=== PATIENT | male | born 1970 | race Caucasian/White ===

== ENCOUNTER 2021-05-29 08:11 | Emergency (ER) | payer SELFPAY ==
--- NOTE | ~2021-05-29 | XR_ITS ---
EXAMINATION: XR chest 1V portable 05/29/2021 08:39 INDICATION: Shortness of breath. Covid positive. PROCEDURE: AP portable chest COMPARISON: No prior studies for comparison. FINDINGS: The lungs are clear. The cardiomediastinal silhouette is within normal limits. There are no pleural effusions. There is no pneumothorax suspected. There is scoliosis. No acute osseous abno rmality. IMPRESSION: 1: NO ACUTE CARDIOPULMONARY DISEASE. Reviewed, dictated and finalized at location B. ETT MECHANIC
[2021-05-29 08:17] VITALS: BP 159/100; PULSE 109; RESP 14; TEMP 36.9; O2SAT 99
--- NOTE | 2021-05-29 08:22 | ECG_ITS ---
Measurements Intervals [place] Rate: 102 P: 80 [place]: 114 QRS: 21 QRSD: 89 T: 66 QT: 329 QTc: 430 Interpretive Statements SINUS TACHYCARDIA WITH SHORT [place] INTERVAL INCOMPLETE RIGHT BUNDLE BRANCH BLOCK BORDERLINE ST ABNORMALITY- ANTEROLAT/INF LEADS BASELINE ARTIFACT- I, AVR BORDERLINE ECG Electronically Signed On 05-29-2021 9:22:53 AUTOMOBILE INSPECTOR by Satinder Frey D.O.
[2021-05-29 08:36] LABS: Basophils Percent Auto 0.1 % (0.2-1.2); Hematocrit 46.1 % (42.0-52.0); Hemoglobin 15.8 g/dL (14.0-18.0); Immature Granulocyte Absolute 0.03 K/mm3 (0.00-0.031); Immature Granulocyte Percent A 0.4 % (0-0.5); Lymphocytes Absolute Auto 1.02 K/mm3 (0.9-3.2); Lymphocytes Percent Auto 14.1 % (18.3-44.2); Mean Corpuscular HGB Conc 34.3 g/dl (32-36); Mean Corpuscular Hemoglobin 30.7 pg (26-34); Mean Corpuscular Volume 89.5 fl (80-100); Mean Platelet Volume 9.8 fl (7.4-10.4); Monocytes Absolute Auto 0.2 K/mm3 (0.1-0.6); Monocytes Percent Auto 2.5 % (2.6-8.5); Neutrophils Percent Auto 82.9 % (45.5-73.1); Platelet Count Result 230 k/mm3 (150-375); Red Blood Count 5.15 M/mm3 (4.6-6.20); Red Cell Distribution Width 13.3 % (11.5-14.5); White Blood Count 7.3 K/mm3 (4.5-10.0)
[2021-05-29 08:45] LABS: Alanine Aminotransferase 30 U/L (4-50); Albumin Level 4.8 g/dL (3.5-5.1); Alkaline Phosphatase 97 U/L (38-126); Anion Gap 13 mmol/L (8-16); Aspartate Amino Transferase 32 U/L (17-59); Bilirubin,Total 0.4 mg/dL (0.2-1.3); Blood Urea Nitrogen 6 mg/dL (9-20); Calcium 9.2 mg/dL (8.4-10.2); Carbon Dioxide 24 mmol/L (22-30); Chloride 101 mmol/L (98-107); Estimated CRCL calculation 75 ml/min; Estimated Glomerular Filt Rate > 60; Glucose 175 mg/dL (65-110); Potassium 3.4 mmol/L (3.4-5.0); Sodium 138 mmol/L (137-145)
[2021-05-29 09:08] LABS: D Dimer 0.29 ug/mL (<0.48)
[2021-05-29 09:22] LABS: Troponin I < 0.012 ng/mL (0.000-0.034)
--- NOTE | 2021-05-29 09:22 | ED.SOB ---
HPI - SOB/Dyspnea General Chief Complaint: Shortness of Breath/Dyspnea Stated Complaint: COVID + 1.24.22, SOB Time Seen by Provider: 05/29/21 09:12 Source: patient Mode of arrival: ambulatory Limitations: no limitations History of Present Illness HPI Narrative: This is a 50 year old male that presents to the ER for cold symptoms present over the last 13 days. Reports cough, congestion, sinus pain, and chills. He is not COVID vaccinated. Reports over the last couple of days he started to note more fatigue and shortness of breath which prompted him to be seen. He had a positive home COVID test a couple days ago. Denies fever, chest pain or lower extremity edema. Related Data Allergies Allergy/AdvReac Type Severity Reaction Status Date / Time No Known Allergies Allergy Mild Unverified 12/22/08 19:50 Review of Systems Review of Systems: CONSTITUTIONAL: Reports chills. Denies fever ENT: Reports rhinorrhea, congestion CARDIOVASCULAR: Denies chest pain, or edema. RESPIRATORY: Reports cough and dyspnea. GASTROINTESTINAL: Reports nausea. Denies abdominal pain or vomiting All systems reviewed & are unremarkable except as noted in HPI and below PMFSH Past Medical History Medical History (Updated 05/29/21 @ 12:51 by Mindi Wheatley PA-C) No active medical problems Social History Social History (Updated 05/29/21 @ 09:50 by Mindi Wheatley PA-C) Smoking status: Current every day smoker Substance use: current Substance use type: marijuana Exam Narrative: GENERAL: Well-appearing, well-nourished, and in no acute distress. HEAD: Normocephalic, atraumatic. EYES: EOMI. ENT: Nares clear, no rhinorrhea or epistaxis. Mucous membranes moist. Oropharynx without tonsillar hypertrophy exudate or other lesions. NECK: Supple. No adenopathy or masses. CHEST: Clear to auscultation. No respiratory distress. No wheezes rales or rhonchi HEART: Regular rate and rhythm. No murmur heard. Normal peripheral pulses. EXTREMITIES: Normal range of motion. No edema. SKIN: Warm, dry, no rash. NEURO: No focal deficits. Alert and oriented x3. PSYCH: Normal mood and affect Course Vital Signs Vital signs: Vital Signs Temperature 98.5 F 05/29/21 08:17 Pulse Rate 109 H 05/29/21 08:17 Respiratory Rate 14 05/29/21 08:17 Blood Pressure 159/100 H 05/29/21 08:17 Pulse Oximetry 99 05/29/21 08:17 Temperature 98.5 F 05/29/21 08:17 Pulse Rate 85 05/29/21 13:02 Respiratory Rate 18 05/29/21 13:02 Blood Pressure 134/94 H 05/29/21 13:02 Pulse Oximetry 100 05/29/21 13:02 MDM - SOB/Dyspnea MDM Narrative Medical decision making narrative: Patient presents to the emergency department for shortness of breath ongoing over the last couple of days. Reporting a positive Covid test at home. He is afebrile and nontoxic-appearing. His vitals are stable. Oxygen saturation has remained normal on room air. CBC and metabolic panel without concerning findings. EKG with nonspecific ST changes. His baseline and 3 hour troponin are negative. He denies any chest pain. The ST changes did seem to improve on repeat EKG. No worsening concerns. Chest x-ray without acute cardiopulmonary abnormality. D-dimer is not elevated. Patient reports improvement in symptoms with albuterol inhaler. Patient was updated on case findings. He is stable and felt appropriate for further outpatient evaluation. 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 I do not have any recent EKGs for comparison. He was given warnings to return to the ER Lab Data Attestation: I reviewed the patient's lab results. Result diagrams: 05/29/21 08:23 05/29/21 08:23 Labs: Lab Results 05/29/21 05/29/21 05/29/21 Range/Units 08:23 08:23 08:41 WBC 7.3 (4.5-10.0) K/mm3 RBC 5.15 (4.6-6.20) M/mm3 Hgb 15.8 (14.0-18.0) g/dL Hct 46.1 (42.0-52.0) % MCV 89.5 (
[2021-05-29] MEDS: ALBUTEROL SULFATE (*SP) AEROSOL 1 PUFF 2 PUFF INHALATION (10:16)
[2021-05-29] MEDS: ONDANSETRON INJ 4 MG/2 ML VIAL IV PUSH (10:21)
[2021-05-29] MEDS: SODIUM CHLORIDE 0.9% IV 500 ML 999 ML IV CONT (10:21)
[2021-05-29 10:22] VITALS: BP 132/97; PULSE 88; PULSE 89; RESP 18; O2SAT 98
[2021-05-29 10:22] LABS: Alveolar/Arterial O2 Gradient 28.2 mmHg; Base Excess ABG -1.6 mEq/l (+/-2.0); Carboxyhemoglobin 6.1 % THb (0-2.0); Device ROOM AIR; Fractional Inspired Oxygen 21 %; Methemoglobin ABG 0.1 %THb (0-1.5); Modified Allen's Test Pass; Oxygen Content ABG 20.4 %vol (16.0-22.0); Oxygen Saturation ABG 96.2 % (95.0-100.0); Oxyhemoglobin 90.1 % THb (90.0-100.0); PCO2 ABG 34.4 mmHg (35.0-45.0); PO2 ABG 80.3 mmHg (80.0-100.0); PO2 FiO2 Ratio Arterial Blood 3.82 %; Reduced Hemoglobin 3.7 %THb (0-5.0); Site Drawn LEFT RADIAL; Total Hemoglobin 16.1 g/dL (12.0-18.0); pH ABG 7.423 (7.350-7.450)
--- NOTE | 2021-05-29 11:57 | ECG_ITS ---
Measurements Intervals [place] Rate: 88 P: 145 [place]: 92 QRS: -19 QRSD: 100 T: 151 QT: 343 QTc: 416 Interpretive Statements ECTOPIC ATRIAL RHYTHM WITH SHORT [place] INTERVAL INCOMPLETE RIGHT BUNDLE BRANCH BLOCK BORDERLINE T WAVE ABNORMALITY- INFERIOR LEADS BASELINE ARTIFACT- I, III, AVL ABNORMAL ECG Electronically Signed On 05-29-2021 12:23:59 FAST FOOD DELIVERY DRIVER by Satinder Frey D.O.
[2021-05-29 12:11] LABS: Troponin I < 0.012 ng/mL (0.000-0.034)
[2021-05-29] MEDS: METOCLOPRAMIDE HCL INJ 10 MG/2 ML VIAL IV PUSH (13:00)
[2021-05-29] MEDS: diphenhydrAMINE HCl INJ 50 MG/ML VIAL 25 MG IV PUSH (13:01)
[2021-05-29 13:02] VITALS: BP 134/94; PULSE 85; RESP 18; O2SAT 100
[2021-05-29 14:23] VITALS: BP 128/83; PULSE 77; RESP 18; O2SAT 96
== END 2021-05-29 14:24 | disposition home or self-care (01) ==
PROVIDERS: Physician Assistant; Emergency Provider Emergency Medicine
DX: R05.9 Cough, unspecified (principal); R09.81 Nasal congestion; R68.83 Chills (without fever); Z20.822 Contact with and (suspected) exposure to COVID-19; F17.200 Nicotine dependence, unspecified, uncomplicated; R00.0 Tachycardia, unspecified; I45.10 Unspecified right bundle-branch block; R94.31 Abnormal electrocardiogram [ECG] [EKG]
CPT/HCPCS: 36415; 36600; 71045; 80053; 82375; 82805; 83050; 84484; 85025; 85380; 93005; 96361; 96374; 96375; 99284; A9270; J1200; J2405; J2765; J7040

== ENCOUNTER → 2022-07-09 07:41 | Outpatient (CLI) | payer BC, SELFPAY ==
--- NOTE | ~2022-07-09 | US_ITS ---
US abdomen complete DATE: 07/09/2022 08:24 INDICATION: Abdominal pain. Heartburn, nausea for one year. TECHNIQUE: Real-time and color flow imaging and Doppler analysis COMPARISON: None FINDINGS: No hepatic or pancreatic space-occupying mass lesion is detected. Normal hepatopedal portal venous flow direction. No gallstones or gallbladder wall thickening or pericholecystic fluid collection. Negative sonographi c Jeffries's sign. The common bile duct measures 3 mm, normal. The right kidney measures approximately 9.3 cm length, left kidney approximately 10.3 cm. No renal ma ss lesion or hydronephrosis is evident. Normal splenic size. Normal caliber of the abdominal aorta. The inferior vena cava is unremarkable. IMPRESSION: No significant abnormality Reviewed, dictated and finalized at Location [facility]. Reviewed, dictated and finalized at location B. O CONTROL CRANE OPERATOR IMPRESSION: No significant abnormality
== END ==
PROVIDERS: PCP Family Medicine; Visit Provider Physician Assistant
DX: R10.9 Unspecified abdominal pain (principal)
CPT/HCPCS: 76700

== ENCOUNTER 2022-11-20 03:51 | Day surgery (SDC) | payer BC, SELFPAY ==
[2022-11-10 15:49] VITALS: BMI 22.5
[2022-11-20 11:41] VITALS: BP 121/90; PULSE 104; RESP 18; TEMP 36.7; O2SAT 99; BMI 21.2
[2022-11-20] MEDS: LACTATED RINGERS 1,000 ML 150 ML IV CONT (11:57)
--- NOTE | 2022-11-20 11:57 | PM.HPGS ---
History of Present Illness History of Present Illness Consent: Risks, benefits, and alternatives have been discussed and questions answered. Patient agrees to proceed with procedure. Chief complaint: diarrhea, GERD Narrative: Jorge A Manriquez is a 52 year old male Who has been troubled by a solid or stomach for several months. He has tried Pepto-Bismol, Zegerid, Gas-x, Tums and other products without relief. He also has had diarrhea for the past year. His stools are almost always loose but on some occasions he will actually become briefly constipated. He does not see blood in his stools. Review of Systems Review of Systems: All systems reviewed & are unremarkable except as noted in HPI and below PMFSH Past Medical History Medical History Collapsed lung 2008 COVID 2021 Hyperlipidemia Family History Family History Father Heart disease Mother Acute myocardial infarction Heart disease Sibling Acute myocardial infarction Heart disease Social History Social History Years smoked: 30 Smoking status: Former smoker Tobacco type: cigarettes Second hand tobacco smoke exposure: Yes Smoking end date: 01/02/22 Alcohol intake: current Alcohol use details: occasional Substance use: current Substance use type: marijuana Other substance usage details: Daily Lack of Transportation: No Lack of Food: Never True Current Housing: I Have Housing Concerned About Future Housing: No Difficulty Paying Gas/Electric Bills: No Difficulty Paying for Meds: No Currently Unemployed: YES Education: High School Diploma/GED Difficulty w/ Childcare or Family Care: No Living arrangements: with family Occupation/Education: unemployed Gender identity (if verbalized by the patient): Male Sexual Orientation (if Verbalized by the Patient): Straight or Heterosexual Spiritual care concerns: No Agree to blood products: No Meds Home Medications and Allergies Home Medications Medication Instructions Recorded Confirmed Type atorvastatin 20 mg tablet 20 mg PO DAILY #30 tabs 07/07/22 11/20/22 Rx Allergies Allergy/AdvReac Type Severity Reaction Status Date / Time Penicillins Allergy Intermediate Unknown Verified 11/20/22 11:40 Vital Signs Vital Signs - 24 hr 11/20/22 11:41 Temperature 36.7 C Pulse Rate 104 H Respiratory Rate 18 Blood Pressure 121/90 Pulse Oximetry 99 Oxygen Delivery Room Air Exam Const: General: alert Orientation/consciousness: patient oriented x3 Resp: Auscultation: clear to auscultation bilaterally Cardio: Rhythm: regular rhythm GI: GI Palp: Yes Soft to palpation and No Tenderness to palpation present (GI) Neuro: General: patient oriented x3 Assessment and Plan Assessment and plan (1) Dyspepsia: Code(s): R10.13 - Epigastric pain Status: Acute Assessment and Plan: EGD with possible biopsy or dilatation or cautery. (2) Chronic diarrhea: Code(s): K52.9 - Noninfective gastroenteritis and colitis, unspecified Status: Acute Assessment and Plan: Colonoscopy with possible biopsy or polypectomy or cautery or injection of substances.
--- NOTE | 2022-11-20 12:55 | P.PNAN_ITS ---
Anes - Initial Pre Proc Eval Procedure: Operation Date: 11/20/22 13:00 Proposed Procedures p Esophagogastroduodenoscopy & Colonoscopy - Luis Alberto Ji MD Date/Time: 11/20/22 12:55 Surgeon: Luis Alberto Ji MD Pre Op Diagnosis: diarrhea, GERD Patient Data Age: 52 Gender: M Height: 1.65 m Weight: 58 kg Last Vital Signs Temp 98.0 F 11/20/22 11:41 Pulse 104 H 11/20/22 11:41 Resp 18 11/20/22 11:41 BP 121/90 11/20/22 11:41 Pulse Ox 99 11/20/22 11:41 O2 Del Method Room Air 11/20/22 11:41 Allergies Allergy/AdvReac Type Severity Reaction Status Date / Time Penicillins Allergy Intermediate Unknown Verified 11/20/22 11:40 Home Medications Medication Instructions Recorded Confirmed Type atorvastatin 20 mg tablet 20 mg PO DAILY #30 tabs 07/07/22 11/20/22 Rx Patient hx anesthesia problems: none Family hx anesthesia problems: none Results Review: All pre-operative results and documents have been reviewed as part of the pre- operative evaluation. [facility] Past Medical History Medical History Collapsed lung 2009 COVID 2021 Hyperlipidemia Family History Family History Father Heart disease Mother Acute myocardial infarction Heart disease Sibling Acute myocardial infarction Heart disease Social History Social History Years smoked: 30 Smoking status: Former smoker Tobacco type: cigarettes Second hand tobacco smoke exposure: Yes Smoking end date: 01/02/22 Alcohol intake: current Alcohol use details: occasional Substance use: current Substance use type: marijuana Other substance usage details: Daily Lack of Transportation: No Lack of Food: Never True Current Housing: I Have Housing Concerned About Future Housing: No Difficulty Paying Gas/Electric Bills: No Difficulty Paying for Meds: No Currently Unemployed: YES Education: High School Diploma/GED Difficulty w/ Childcare or Family Care: No Living arrangements: with family Occupation/Education: unemployed Gender identity (if verbalized by the patient): Male Sexual Orientation (if Verbalized by the Patient): Straight or Heterosexual Spiritual care concerns: No Agree to blood products: No Anes - Eval Final PreProcedure Day of Procedure 11/20/22 12:55 Patient weight: normal Heart: regular rate and rhythm Lungs: clear to auscultation Airway: Mallampati scale class II Neurological: alert and oriented Last oral intake: >/= 8 hours ASA classification: II Emergent: no Anesthetic plan: proceed Anesthesia type and monitoring: general GIVS and standard monitoring Results Review: All pre-operative results and documents have been reviewed as part of the pre- operative evaluation. Informed Consent: The patient's anesthetic plan and its attendant risks and benefits were discussed with the patient/family/POA. Questions were solicited and answers provided to the satisfaction of the patient/family/POA.
[2022-11-20] MEDS: SIMETHICONE ORAL SUSPENSION 20 MG/0.3 ML 30 ML BOTTLE 0.6 ML IRRIGATION (13:33)
[2022-11-20 13:47] VITALS: BP 98/72; PULSE 85; RESP 16; O2SAT 97
--- NOTE | 2022-11-20 13:47 | SUR.OPER ---
EGD started at 1311 and ended at 1315. Colonoscopy started at 1324.
[2022-11-20 13:57] VITALS: BP 111/73; PULSE 79; RESP 20; O2SAT 97
[2022-11-20 14:07] VITALS: BP 109/74; PULSE 73; RESP 17; O2SAT 97
== END 2022-11-20 14:20 | disposition home or self-care (01) ==
PROVIDERS: PCP Family Medicine; Visit Provider Internal Medicine Gastroenterology
PROC: 0DJ08ZZ Inspection of Upper Intestinal Tract, Via Natural or Artificial Opening Endoscopic (ICD-10-PCS; CPT 43235; principal; 2022-11-20 13:00)
DX: R19.7 Diarrhea, unspecified (principal); K64.8 Other hemorrhoids; K57.30 Diverticulosis of large intestine without perforation or abscess without bleeding; D12.5 Benign neoplasm of sigmoid colon; K21.00 Gastro-esophageal reflux disease with esophagitis, without bleeding; Z87.891 Personal history of nicotine dependence; F12.90 Cannabis use, unspecified, uncomplicated
CPT/HCPCS: 45385; 43239; 87081; 88305; J2704; J7120